=== PATIENT | male | born 1945 | race Caucasian/White ===

== ENCOUNTER → 2019-10-27 13:56 | Outpatient (CLI) | payer BC, SELFPAY ==
--- NOTE | 2019-10-27 14:03 | RAD_ITS ---
HISTORY: PAIN, injury ADDITIONAL HISTORY: None provided. TECHNIQUE: Left ankle 3 views Number of images including paperwork: 3 COMPARISON: None FINDINGS: BONES: Comminuted, minimally displaced left distal fibula fracture is noted, partially obscured by overlying plaster splint material. No other definite fracture. JOINTS: No dislocation. SOFT TISSUES: No distinct foreign body. Vascular calcifications. Soft tissue swelling. RAD/Ankle min 3 Views IMPRESSION: Left distal fibula fracture. at 2236 Reported and signed by: Pamela Yadav MD Electronically Signed: Pamela Yadav MD at 22:36 EST Tel , Service support ,
--- NOTE | 2019-10-27 15:06 | RAD_ITS ---
HISTORY: pain, new cast, AP and Oblique only per ordering doctor ADDITIONAL HISTORY: None provided. TECHNIQUE: Left ankle 2 views Number of images including paperwork: 2 COMPARISON: 10/27/2019 2:09 PM FINDINGS: Plaster splint has been replaced by a fiberglass cast material which somewhat limits fine detail. Obliquely oriented, minimally displaced, comminuted fracture of the left distal fibula is again seen, similar in appearance. RAD/Ankle 2 Views IMPRESSION: No gross change in left distal fibula fracture status post fiberglass cast placement. at 2243 Reported and signed by: Pamela Yadav MD Electronically Signed: Pamela Yadav MD at 22:42 EST Tel , Service support ,
== END ==
LOC: HPRAD 14:03
PROVIDERS: PCP Internal Medicine Infectious Disease; Referring Provider Physician Assistant; Visit Provider Physician Assistant
DX: S82.892A Other fracture of left lower leg, initial encounter for closed fracture (principal); M25.572 Pain in left ankle and joints of left foot
CPT/HCPCS: 73600; 73610